=== PATIENT | male | born 2000 | race Caucasian/White ===

== ENCOUNTER 2023-09-07 14:48 | Outpatient (CLI) | payer OTHER ==
[2023-09-07 16:16] LABS: #Eosinphils 0.3 10x3/uL (0.0-0.5); #Monocytes 0.9 10x3/uL (0.0-1.1); #Neutrophils 9.2 10x3/uL (1.5-8.4); %Basophils 0.3 % (0.0-2.0); %Eosinophils 2.1 % (0.0-6.0); %Lymphocytes 13.5 % (18.0-47.0); %Monocytes 7.2 % (0.0-10.0); %Neutrophils 76.6 % (40.0-75.0); Hematocrit 48.1 % (38.8-50.0); Hemoglobin 16.3 g/dL (13.5-17.5); Mean Corpuscular HGB CONC 33.9 g/dL (32.0-36.0); Mean Corpuscular Hemoglobin 30.3 pg (27.0-33.0); Mean Corpuscular Volume 89.4 fl (81.2-95.1); Mean Platelet Volume 10.4 fl (7.4-10.4); Platelet Count 235 10x3/uL (150-450); Red Blood Cell (RBC) Count 5.38 10x6/uL (4.32-5.72); White Blood Cell (WBC) Count 12.1 10x3/uL (3.5-10.5)
[2023-09-07 16:33] LABS: Anion Gap 14 mmol/L (10-20); BUN (Urea Nitrogen) 13 mg/dL (8.9-20.6); Calc. Creatinine Clearance 0 mL/min (70-130); Calcium 9.5 mg/dL (7.8-10.44); Carbon Dioxide 27 mmol/L (22-29); Chloride 106 mmol/L (98-107); Estimated GFR 110; Glucose 73 mg/dL (70-105); Potassium 4.5 mmol/L (3.5-5.1); Sodium 142 mmol/L (136-145)
== END 2023-09-07 14:49 | disposition home or self-care (01) ==
LOC: LABBT 14:48
PROVIDERS: ATTEND Specialist
DX: Z01.812 Encounter for preprocedural laboratory examination (principal); L05.91 Pilonidal cyst without abscess
CPT/HCPCS: 80048; 85025

== ENCOUNTER 2023-09-10 07:58 | Day surgery (SDC) | payer OTHER ==
[2023-09-07 16:24] VITALS: BMI 27.1
[2023-09-10] MEDS ORDERED: Ketorolac Tromethamine 30 MG/ML VIAL ONE (08:52)
[2023-09-10] MEDS ORDERED: Acetaminophen 500 MG TAB ONE (08:52)
[2023-09-10] MEDS ORDERED: Lidocaine 1% PF 5 ML VIAL ONE (10:33)
[2023-09-10] MEDS ORDERED: Rocuronium Bromide 10 MG/ML (10ML VIAL) ONE ×2 (10:33→11:37)
[2023-09-10] MEDS ORDERED: PROPOFOL 20 ML ONE (10:33)
[2023-09-10] MEDS ORDERED: ePHEDrine Sulfate 50 MG/10 ML VIAL ONE (10:37)
[2023-09-10] MEDS ORDERED: Ondansetron PF 4 MG/2 ML Vial ONE ×3 (10:55→11:47)
[2023-09-10] MEDS ORDERED: Midazolam HCl 2 mg/2 ml Vial ONE (11:08)
[2023-09-10] MEDS ORDERED: Methylene Blue 50 MG/10 ML AMPUL ONE (11:16)
[2023-09-10] MEDS ORDERED: Bacitracin Zinc Ointment 30 gm TUBE ONE (11:16)
[2023-09-10] MEDS ORDERED: EPINEPHrine 1 MG/ML VIAL ONE (11:16)
[2023-09-10] MEDS ORDERED: Bupivacaine 0.25% HCL 30 ML VIAL ONE (11:16)
[2023-09-10] MEDS ORDERED: fentaNYL PF 100 MCG/2 ML SYRINGE ONE (11:17)
[2023-09-10] MEDS ORDERED: Sodium Chloride 0.9% 100 ML ONE (11:23)
[2023-09-10] MEDS ORDERED: CEFAZOLIN 2 GM VIAL ONE (11:23)
[2023-09-10] MEDS ORDERED: PROPOFOL 200 MG/20 ML VIAL ONE (11:37)
[2023-09-10] MEDS ORDERED: Dexamethasone 20 MG/5 ML VIAL ONE ×2 (11:37→11:47)
[2023-09-10] MEDS ORDERED: SUGAMMADEX SODIUM 200 MG/2 ML VIAL ONE (12:19)
[2023-09-10] MEDS ORDERED: fentaNYL 50 mcg/mL 1 mL Vial ONE (13:28)
[2023-09-10] MEDS ORDERED: HYDROcodone/Acetaminophen 5/325 mg Tablet ONE (14:29)
== END 2023-09-10 14:57 | disposition home or self-care (01) ==
LOC: SDC 07:58
PROVIDERS: ATTEND Specialist
PROC: 0HB8XZZ Excision of Buttock Skin, External Approach (ICD-10-PCS; principal; 2023-09-10)
DX: L05.91 Pilonidal cyst without abscess (principal); G43.909 Migraine, unspecified, not intractable, without status migrainosus
CPT/HCPCS: 88304; J0171; J1100; J1885; J2250; J2405; J2704; J3010; J3490; Q9968; S0020